=== PATIENT | female | born 1960 | race Caucasian/White ===

== ENCOUNTER → 2017-01-08 | Outpatient (CLI) | payer BC | LOC: KOH-I 12:16 | DX: J18.9 Pneumonia, unspecified organism (principal); R91.8 Other nonspecific abnormal finding of lung field; Z88.1 Allergy status to other antibiotic agents; Z91.040 Latex allergy status | CPT/HCPCS: 71020 ==

== ENCOUNTER → 2017-02-09 | Outpatient (CLI) | payer BC | LOC: HEART 5 15:01 | DX: Z01.811 Encounter for preprocedural respiratory examination (principal); J42 Unspecified chronic bronchitis | CPT/HCPCS: 94010 ==